=== PATIENT | male | born 1950 | race Caucasian/White ===

== ENCOUNTER → 2018-08-11 | Outpatient (CLI) | payer MEDICARE, OTHER ==
--- NOTE | 2018-08-11 15:06 | REP ---
Clinical: Cervical Technique: AP, lateral, flexion/extension, bilateral oblique, and open-mouth views of the cervical spine. Findings: There appears to be approximately 2 mm of retrolisthesis at the C3-4 level most notably on neutral and extension views. Mild multilevel degenerative changes include endplate sclerosis with subtle anterior spurring and minimal disc space narrowing at C3-4, C4-5, and C5-6. No acute fracture / compression injury. C1-C2 articulation and odontoid process are normal. Impression: Mild multilevel degenerative spondylosis and approximately 2 mm of retrolisthesis at the C3-4 level. Electronically Signed by Messi Booth MD 08/11/2018 02:57 P
== END ==
LOC: M RAD 14:02
PROVIDERS: ATTEND Physician Assistant
DX: M47.892 Other spondylosis, cervical region (principal)

== ENCOUNTER → 2019-12-25 | Outpatient (CLI) | payer MEDICARE, OTHER ==
[~2019-12-25] MED LIST: DONE10TA90 PO; TADA5TAB PO
== END ==
LOC: M LABSMTC 09:51
PROVIDERS: ATTEND Anesthesiology
DX: Z01.812 Encounter for preprocedural laboratory examination (principal); Z20.828 Contact with and (suspected) exposure to other viral communicable diseases

== ENCOUNTER 2019-12-30 11:59 | Day surgery (SDC) | payer MEDICARE, OTHER ==
[~2019-12-30] VITALS: Ht 177.8 cm; Wt 77.1 kg
[~2019-12-30 11:59] MED LIST changes: +NS 1,000 ML IV ONE
--- NOTE | 2019-12-30 13:15 | ROOR ---
Patient Name: Haresh Cortes Procedure Date: 12/30/2019 12:48 PM Date of : 1950 Age: 69 Room: [facility] Gender: Male Note Status: Finalized Procedure: Colonoscopy Indications: Screening for colorectal malignant neoplasm Providers: Umer De Oliveira Jr, MD Referring MD: RONALD KEYES Requesting Provider: Medicines: Propofol per Anesthesia Complications: No immediate complications. Procedure: Pre-Anesthesia Assessment: - Prior to the procedure, a History and Physical was performed, and patient medications and allergies were reviewed. The patient is competent. The risks and benefits of the procedure and the sedation options and risks were discussed with the patient. All questions were answered and informed consent was obtained. Patient identification and proposed procedure were verified by the physician and the nurse in the pre-procedure area and in the procedure room. Mental Status Examination: alert and oriented. Airway Examination: normal oropharyngeal airway and neck mobility. Respiratory Examination: clear to auscultation. CV Examination: normal. ASA Grade Assessment: II - A patient with mild systemic disease. After reviewing the risks and benefits, the patient was deemed in satisfactory condition to undergo the procedure. The anesthesia plan was to use moderate sedation / analgesia (conscious sedation). Immediately prior to administration of medications, the patient was re-assessed for adequacy to receive sedatives. The heart rate, respiratory rate, oxygen saturations, blood pressure, adequacy of pulmonary ventilation, and response to care were monitored throughout the procedure. The physical status of the patient was re-assessed after the procedure. The Colonoscope was introduced through the anus and advanced to the cecum, identified by appendiceal orifice and ileocecal valve. The colonoscopy was performed without difficulty. The patient tolerated the procedure well. The quality of the bowel preparation was adequate. Findings: The recto-sigmoid colon, sigmoid colon, descending colon, transverse colon, ascending colon, cecum, appendiceal orifice and ileocecal valve appeared normal. A medium polyp was found in the rectum. The polyp was pedunculated. The polyp was removed with a hot snare. Resection and retrieval were complete. Impression: - The recto-sigmoid colon, sigmoid colon, descending colon, transverse colon, ascending colon, cecum, appendiceal orifice and ileocecal valve are normal. - One medium polyp in the rectum, removed with a hot snare. Resected and retrieved. Recommendation: - Repeat colonoscopy in 5 years for surveillance. Procedure Code(s): --- Professional --- 51731, Colonoscopy, flexible; with removal of tumor(s), polyp(s), or other lesion(s) by snare technique Diagnosis Code(s): --- Professional --- Z12.11, Encounter for screening for malignant neoplasm of colon K62.1, Rectal polyp CPT copyright 2019 [employer]. All rights reserved. The codes documented in this report are preliminary and upon elastic cutter review may be revised to meet current compliance requirements. Umer De Oliveira MD Umer De Oliveira Jr, MD 12/30/2019 1:14:32 PM Electronically signed by Umer De Oliveira Jr, MD Number of Addenda: 0 Note Initiated On: 12/30/2019 12:48 PM Estimated Blood Loss: Estimated blood loss: none.
[2019-12-30 13:45] VITALS: BP 109/73
== END 2019-12-30 13:58 | disposition home or self-care (01) ==
LOC: M OPP 11:59
PROVIDERS: ATTEND Surgery
DX: Z12.11 Encounter for screening for malignant neoplasm of colon (principal); D12.6 Benign neoplasm of colon, unspecified; I10 Essential (primary) hypertension; F03.90 Unspecified dementia, unspecified severity, without behavioral disturbance, psychotic disturbance, mood disturbance, and anxiety; Z79.899 Other long term (current) drug therapy

== ENCOUNTER → 2022-05-15 | Outpatient (CLI) | payer MEDICARE, OTHER ==
[~2022-05-15] MED LIST changes: -NS 1,000 ML IV ONE
== END ==
LOC: M PLAIMG 11:16
PROVIDERS: ATTEND Psychiatry & Neurology Neurology
DX: I63.9 Cerebral infarction, unspecified (principal)

== ENCOUNTER → 2023-11-07 | Outpatient (CLI) | payer MEDICARE, OTHER | LOC: M RAD 10:53 | PROVIDERS: ATTEND Internal Medicine | DX: N39.0 Urinary tract infection, site not specified (principal); N32.9 Bladder disorder, unspecified ==

== ENCOUNTER → 2024-01-14 | Outpatient (REF) | payer MEDICARE, OTHER ==
[~2024-01-14] MED LIST changes: -TADA5TAB PO; +TADA5TAB94 PO
[2024-01-14 19:16] LABS: APPEARANCE, URINE CLEAR (CLEAR); BACTERIA, URINE AUTO NEGATIVE (NEGATIVE); BILIRUBIN, URINE AUTO NEGATIVE (NEGATIVE); BLOOD, URINE BLOOD NEGATIVE (NEGATIVE); COLOR, URINE YELLOW (YELLOW); GLUCOSE, URINE (UA) AUTO NEGATIVE (NEGATIVE); KETONE, URINE AUTO NEGATIVE (NEGATIVE); LEUKOCYTE ESTERASE, URINE AUTO NEGATIVE (NEGATIVE); NITRITE, URINE AUTO NEGATIVE (NEGATIVE); PROTEIN, URINE AUTO NEGATIVE (NEGATIVE); RBC, URINE AUTO 0 /HPF (0-3); SPECIFIC GRAVITY URINE AUTO 1.017 (1.002-1.035); SQUAMOUS EPITHELIAL CELL UR AU 0 /HPF (0-6); UROBILINOGEN, URINE AUTO 0.2 mg/dL (0.0-2.0); WBC, URINE AUTO 0 /HPF (0-3)
== END ==
LOC: M SMT 16:57
PROVIDERS: ATTEND Urology
DX: R93.89 Abnormal findings on diagnostic imaging of other specified body structures (principal)

== ENCOUNTER 2025-01-12 11:19 | Inpatient (IN) | payer MEDICARE, OTHER ==
[~2025-01-12] VITALS: Ht 182.9 cm; Wt 81.5 kg
[~2025-01-12 11:19] MED LIST changes: +TADA5TAB2 PO; -TADA5TAB94 PO
[2025-01-12 11:58] LABS: BASO # 0.0 10^3/uL (0.0-0.2); BASO % 0.4 % (0.0-1.0); EOS # 0.1 10^3/uL (0.0-0.5); EOS % 1.2 % (0.0-3.0); LYMPH # 1.5 10^3/uL (1.5-5.0); LYMPH % 14.5 % (24.0-44.0); MONO # 1.0 10^3/uL (0.0-0.8); MONO % 9.3 % (2.0-8.0); NEUTROPHILS # 7.7 10^3/uL (1.5-8.5); NEUTROPHILS % 74.2 % (36.0-66.0); PLATELET COUNT, AUTOMATED 350 10^3/uL (150-450)
[2025-01-12] MEDS ORDERED: TAMS1CAP17 PO (12:04)
[2025-01-12] MEDS ORDERED: TRAZ1TAB11 PO (12:04)
[2025-01-12] MEDS ORDERED: MIRT-10 PO (12:04)
[2025-01-12] MEDS ORDERED: DIVA1TAB48 PO (12:04)
[2025-01-12 12:38] LABS: ALT/SGPT 35.0 U/L (7.0-40); AST/SGOT 36.0 U/L (<34); C REACTIVE PROTEIN QUANTITATIV 3.18 MG/DL (<1.0); CALCIUM LEVEL 8.3 MG/DL (8.3-10.6); CARBON DIOXIDE LEVEL 28.0 MMOL/L (20-31); CHLORIDE LEVEL 106.0 MMOL/L (98-107); CREATININE FOR GFR 1.32 MG/DL (0.70-1.30); GLOMERULAR FILTRATION RATE 57.0 (>42); POTASSIUM SERUM 5.0 MMOL/L (3.5-5.1); SODIUM LEVEL 144.0 MMOL/L (136-145)
[2025-01-12 12:56] LABS: INR 1.2
[2025-01-12] MEDS ORDERED: ISOVUE-370 76% 100 ML VIAL As Ordered ONE (12:56)
[2025-01-12] MEDS ORDERED: HOME MED LIST COMPLETE! XX SCH (13:25)
[2025-01-12] MEDS: HEPARIN SOD 5000 UNITS/ML 1 ML VIAL/SYRINGE IV ONE (14:47)
[2025-01-12] MEDS: HEPARIN DRIP 25,000 UNITS in IV 1 EA IV SCH ×2 (14:48→16:33)
[2025-01-12] MEDS ORDERED: HEPARIN SOD 5000 UNITS/ML 1 ML VIAL/SYRINGE IV PRN (15:05)
[2025-01-12 16:34] VITALS: BP 143/72; TEMP 97.7; O2SAT 98
[2025-01-12 19:38] VITALS: BP 125/94; TEMP 97.9; O2SAT 99
[2025-01-12] MEDS: ENOXAPARIN 80 MG/0.8 ML SYRINGE (J1650 PER 10MG) SC SCH (21:23)
[2025-01-12] MEDS: DIVALPROEX 125 MG TAB PO SCH (23:03)
[2025-01-12] MEDS: traZODone 50 MG TAB PO SCH (23:04)
[2025-01-12] MEDS: MIRTAZAPINE 15 MG TAB PO SCH (23:04)
[2025-01-13] VITALS (7 sets, daily range): BP systolic 131–156; BP diastolic 90–98; TEMP 97.6–98; O2SAT 94–100
[2025-01-13 06:51] LABS: PLATELET COUNT, AUTOMATED 344 10^3/uL (150-450)
[2025-01-13 06:57] LABS: ALT/SGPT 23.0 U/L (7.0-40); AST/SGOT 16.0 U/L (<34); CALCIUM LEVEL 8.0 MG/DL (8.3-10.6); CARBON DIOXIDE LEVEL 28.0 MMOL/L (20-31); CHLORIDE LEVEL 108.0 MMOL/L (98-107); CREATININE FOR GFR 1.41 MG/DL (0.70-1.30); GLOMERULAR FILTRATION RATE 52.6 (>42); POTASSIUM SERUM 4.5 MMOL/L (3.5-5.1); SODIUM LEVEL 146.0 MMOL/L (136-145)
[2025-01-13 09:17] LABS: INR 1.27
[2025-01-13] MEDS: D5W/LR 1,000 ML IV SCH (10:30)
[2025-01-13] MEDS: TAMSULOSIN 0.4 MG CAP PO SCH (10:31)
[2025-01-13 18:49] LABS: KETONE, URINE AUTO RFX NEGATIVE (NEGATIVE); LEUKOCYTE ESTERASE UR AUTO RFX NEGATIVE (NEGATIVE); NITRITE, URINE AUTO RFX NEGATIVE (NEGATIVE); RBC, URINE AUTO RFX 1 /HPF (0-3); SQUAM EPITHELIAL CELL UR AURFX 0 /HPF (0-6); WBC, URINE AUTO RFX 1 /HPF (0-3)
[2025-01-14 04:13] VITALS: BP 140/89; TEMP 97.2; O2SAT 94
[2025-01-14 07:38] VITALS: BP 128/78; TEMP 97; O2SAT 93
[2025-01-14 09:59] LABS: BASO # 0.0 10^3/uL (0.0-0.2); BASO % 0.8 % (0.0-1.0); EOS # 0.2 10^3/uL (0.0-0.5); EOS % 3.0 % (0.0-3.0); LYMPH # 1.1 10^3/uL (1.5-5.0); LYMPH % 21.3 % (24.0-44.0); MONO # 0.6 10^3/uL (0.0-0.8); MONO % 11.1 % (2.0-8.0); NEUTROPHILS # 3.4 10^3/uL (1.5-8.5); NEUTROPHILS % 63.4 % (36.0-66.0); PLATELET COUNT, AUTOMATED 335 10^3/uL (150-450)
[2025-01-14 10:22] LABS: CALCIUM LEVEL 7.9 MG/DL (8.3-10.6); CARBON DIOXIDE LEVEL 27.0 MMOL/L (20-31); CHLORIDE LEVEL 110.0 MMOL/L (98-107); CREATININE FOR GFR 1.27 MG/DL (0.70-1.30); GLOMERULAR FILTRATION RATE 59.7 (>42); POTASSIUM SERUM 4.4 MMOL/L (3.5-5.1); SODIUM LEVEL 145.0 MMOL/L (136-145)
[2025-01-14] MEDS ORDERED: ELIQ5TAB PO (11:19)
[2025-01-14 12:01] VITALS: BP 144/96; TEMP 97.5; O2SAT 97
[2025-01-16 20:09] LABS: PHOSPHOLIPIDS LEVEL 167 mg/dL (151-264)
[2025-01-17 01:22] LABS: PROTEIN C FUNCTIONAL ACTIVITY 69 % normal (70-180); PROTEIN S FUNCTIONAL ACTIVITY 80 % normal (70-150)
[2025-01-18 03:22] LABS: CARDIOLIPIN IGA ANTIBODY < 2.0 APL-U/mL (<20.0); CARDIOLIPIN IGG ANTIBODY < 2.0 GPL-U/mL (<20.0); CARDIOLIPIN IGM ANTIBODY < 2.0 MPL-U/mL (<20.0)
[2025-01-19 03:57] LABS: ANTI THROMBIN 3 ANTIGEN IMMUNO 103 % normal (80-120); ANTI THROMBIN 3 FUNCT ACTIVITY 101 % normal (80-135)
[2025-01-26 10:19] LABS: DRVV SCREEN 47.0 SECONDS
[2025-01-26 10:30] LABS: PTT LUPUS TYPE ANTICOAG SCREEN 1.24 (0-1.20)
[2025-01-26 11:16] LABS: DRVV CONFIRM 42.7 SECONDS; LUPUS CONFIRM RATIO 1.14
[2025-01-26 11:18] LABS: NORMALIZED RATIO 1.08 (0.00-1.20)
== END 2025-01-14 14:50 | disposition home health service (06) | DRG 299 ==
LOC: EDBD 11:19 → M ED 11:19 → M ED INP 14:58 → M PCU 16:27
PROVIDERS: ADMIT Internal Medicine; ATTEND Internal Medicine
DX: I82.411 Acute embolism and thrombosis of right femoral vein (principal); I26.99 Other pulmonary embolism without acute cor pulmonale; E87.0 Hyperosmolality and hypernatremia; F03.93 Unspecified dementia, unspecified severity, with mood disturbance; N18.9 Chronic kidney disease, unspecified; N40.0 Benign prostatic hyperplasia without lower urinary tract symptoms; L89.322 Pressure ulcer of left buttock, stage 2; G40.909 Epilepsy, unspecified, not intractable, without status epilepticus; I82.431 Acute embolism and thrombosis of right popliteal vein; Z66 Do not resuscitate; Z79.899 Other long term (current) drug therapy